=== PATIENT | female | born 1975 | race Caucasian/White ===

== ENCOUNTER 2023-07-30 12:47 | Inpatient (IN) | payer MEDICAID ==
[~2023-07-30] VITALS: Ht 175.3 cm; Wt 67.6 kg
[2023-07-30 12:58] VITALS: BP 115/45; PULSE 49; RESP 14; TEMP 95.3; O2SAT 97
[2023-07-30 13:29] LABS: BASOPHILS % (AUTO) 0.2 % (0.0-2.0); EOSINOPHILS # (AUTO) 0.1 K/uL (0-0.4); EOSINOPHILS % (AUTO) 0.4 % (0.0-4.0); HEMATOCRIT 43.1 % (36-48); HEMOGLOBIN 14.6 g/dL (12.0-16.0); LYMPHOCYTES # (AUTO) 1.9 K/uL (2.5-16.5); LYMPHOCYTES % (AUTO) 10.9 % (20.5-51.1); MEAN CORPUSCULAR HEMOGLOBIN 32 pg (27-31); MEAN CORPUSCULAR HGB CONC 34 g/dL (33-37); MEAN CORPUSCULAR VOLUME 95.2 fL (80-94); MONOCYTES # (AUTO) 0.5 K/uL (0.8-1.0); MONOCYTES % (AUTO) 2.8 % (1.7-9.3); NEUTROPHILS # (AUTO) 15.1 K/uL (1.8-7.7); NEUTROPHILS % (AUTO) 85.7 % (42.2-75.2); PLATELET COUNT (AUTO) 369 K/uL (140-450); RED BLOOD CELL COUNT(AUTO) 4.53 MIL/uL (4.20-5.40); RED CELL DISTRIBUTION WIDTH 13.3 % (11.6-13.7); WHITE BLOOD COUNT (AUTO) 17.6 K/uL (4.8-10.8)
[2023-07-30 13:41] LABS: ANION GAP 15.8 (8-16); CALCIUM 9.7 mg/dL (8.5-10.1); CARBON DIOXIDE 26.7 mmol/L (21-32); POTASSIUM 3.5 mmol/L (3.5-5.1)
[2023-07-30 13:52] LABS: ACETAMINOPHEN < 0.5 ug/ml (10-30); ALBUMIN 4.6 g/dL (3.4-5.0); ALCOHOL, BLOOD < 3 mg/dL (<10); BILIRUBIN,DIRECT 0.1 mg/dL (0.0-0.3); SALICYLATE < 2.8 mg/dL (2.8-20.0); TOTAL BILIRUBIN 0.4 mg/dL (0.0-1.0); TOTAL PROTEIN, SERUM 8.1 g/dL (6.4-8.2)
[2023-07-30 14:43] LABS: LACTIC ACID 2.3 mmol/L (0.4-2.0)
[2023-07-30 15:38] LABS: BILIRUBIN,URINE NEGATIVE (NEGATIVE); BLOOD, URINE NEGATIVE (NEGATIVE); COLOR,URINE YELLOW (YELLOW); LEUKOCYTE ESTERASE ,URINE NEGATIVE (NEGATIVE); NITRITE, URINE NEGATIVE (NEGATIVE); PROTEIN,URINE TRACE (NEGATIVE); UGLUCOSE NEGATIVE (NEGATIVE); UROBILINOGEN,URINE 0.2 EU/dL (0.2 - 1)
[2023-07-30 15:39] LABS: APPEARANCE,URINE CLOUDY (CLEAR)
[2023-07-30 15:49] LABS: AMPHETAMINE, URINE NEGATIVE ng/ml (NEG <=1000); BARBITURATE, URINE NEGATIVE ng/ml (NEG <=200); BENZODIAZEPINE, URINE NEGATIVE ng/mL (NEG <=200); CANNABINOID, URINE POSITIVE ng/mL (NEG <=50); COCAINE, URINE NEGATIVE ng/mL (NEG <=300); OPIATE, URINE NEGATIVE ng/mL (NEG <=2000); PHENCYCLIDINE SCREEN,URINE NEGATIVE ng/mL (NEG <=25)
[2023-07-30] MEDS: NACL 0.9% 1,000 ML IV ONE ×2 (16:21→18:17)
[2023-07-30] MEDS ORDERED: VANCOMYCIN PER PHARMACY MC PRN (17:55)
[2023-07-30] MEDS ORDERED: VANCOMYCIN 1,000 MG VIAL ONE (18:03)
[2023-07-30] MEDS ORDERED: CEFEPIME 1,000 MG VIAL ONE (18:04)
[2023-07-30] MEDS: CEFEPIME 1,000 MG in DEXTROSE 5% 50 ML IV ONE (18:18)
[2023-07-30] MEDS ORDERED: LORazepam 1 MG TAB PO PRN (18:25)
[2023-07-30] MEDS ORDERED: ONDANSETRON 4 MG/2 ML VIAL IVP PRN (18:25)
[2023-07-30] MEDS ORDERED: ZOLPIDEM 5 MG TAB PO PRN (18:25)
[2023-07-30] MEDS: NACL 0.9% 1,000 ML IV SCH (18:25)
[2023-07-30] MEDS: ONDANSETRON 4 MG/2 ML VIAL IVP ONE (18:32)
[2023-07-30] MEDS: VANCOMYCIN 1GM/DEXT 5% PREMIX 200 ML IV ONE (18:51)
[2023-07-30] MEDS ORDERED: PROG100C4 PO (19:58)
[2023-07-30 21:23] VITALS: PULSE 62; RESP 15; O2SAT 97
[2023-07-31 04:00] VITALS: BP 108/49; PULSE 54; RESP 18; TEMP 97.8; O2SAT 97
[2023-07-31] MEDS: ACETAMINOPHEN 325 MG TAB PO PRN (04:33)
[2023-07-31 05:52] LABS: BASOPHILS % (AUTO) 0.4 % (0.0-2.0); EOSINOPHILS # (AUTO) 0.1 K/uL (0-0.4); EOSINOPHILS % (AUTO) 1.6 % (0.0-4.0); HEMOGLOBIN 10.7 g/dL (12.0-16.0); LYMPHOCYTES # (AUTO) 1.8 K/uL (2.5-16.5); LYMPHOCYTES % (AUTO) 25.2 % (20.5-51.1); MEAN CORPUSCULAR HEMOGLOBIN 32 pg (27-31); MEAN CORPUSCULAR HGB CONC 34 g/dL (33-37); MEAN CORPUSCULAR VOLUME 95.6 fL (80-94); MONOCYTES # (AUTO) 0.4 K/uL (0.8-1.0); MONOCYTES % (AUTO) 5.3 % (1.7-9.3); NEUTROPHILS # (AUTO) 4.9 K/uL (1.8-7.7); NEUTROPHILS % (AUTO) 67.5 % (42.2-75.2); PLATELET COUNT (AUTO) 290 K/uL (140-450); RED BLOOD CELL COUNT(AUTO) 3.34 MIL/uL (4.20-5.40); RED CELL DISTRIBUTION WIDTH 13.6 % (11.6-13.7); WHITE BLOOD COUNT (AUTO) 7.3 K/uL (4.8-10.8)
[2023-07-31 06:27] LABS: ALBUMIN 3.2 g/dL (3.4-5.0); ANION GAP 13.5 (8-16); CARBON DIOXIDE 24.8 mmol/L (21-32); CREATININE 0.7 mg/dL (0.6-1.3); MAGNESIUM 1.8 mg/dL (1.8-2.4); PHOSPHORUS 2.9 mg/dL (2.5-4.9); POTASSIUM 3.3 mmol/L (3.5-5.1); TOTAL BILIRUBIN 0.5 mg/dL (0.0-1.0); TOTAL PROTEIN, SERUM 5.7 g/dL (6.4-8.2)
[2023-07-31 08:00] VITALS: BP 126/54; PULSE 54; PULSE 71; RESP 18; TEMP 98.4; O2SAT 97
[2023-07-31] MEDS: PANTOPRAZOLE 40 MG INJ VIAL IVP SCH (09:13)
[2023-07-31] MEDS: DOCUSATE SODIUM 100 MG GELCAP PO SCH (09:13)
[2023-07-31] MEDS ORDERED: ONDA-188 SL (14:40)
[2023-07-31] MEDS: POTASSIUM CHLORIDE 10 MEQ TABER PO SCH (14:42)
== END 2023-07-31 16:00 | disposition home or self-care (01) | DRG 249 ==
LOC: MED 12:47 → MMU 18:25 → MTU 18:56 → MMU 21:40
PROVIDERS: ADMIT Student in an Organized Health Care Education/Training Program; ATTEND Student in an Organized Health Care Education/Training Program
DX: R11.2 Nausea with vomiting, unspecified (principal); R65.10 Systemic inflammatory response syndrome (SIRS) of non-infectious origin without acute organ dysfunction; F41.9 Anxiety disorder, unspecified; Z79.899 Other long term (current) drug therapy
CPT/HCPCS: 36415; 71045; 80048; 80053; 80076; 80305; 81003; 83605; 83690; 83735; 84100; 84484; 85025; 87040; 87081; 93005; 96361; 96365; 96367; 96375; 99291; C9113; G0480; G0482; J0692; J2405; J3370